=== PATIENT | male | born 1995 | race Caucasian/White ===

== ENCOUNTER 2021-10-01 19:21 | Emergency (ER) | payer OTHER ==
[~2021-10-01] VITALS: Ht 185.4 cm; Wt 81.7 kg
[2021-10-01 19:28] VITALS: BP 122/79
[2021-10-01] MEDS ORDERED: TAMIFLU75 MG PO ×2 (20:39→20:42)
== END 2021-10-01 21:24 | disposition home or self-care (01) ==
LOC: ER 19:21
DX: J10.1 Influenza due to other identified influenza virus with other respiratory manifestations (principal); Z20.822 Contact with and (suspected) exposure to COVID-19; Z98.890 Other specified postprocedural states